=== PATIENT | female | born 1950 | race Caucasian/White ===

== ENCOUNTER → 2024-10-11 14:03 | Outpatient (CLI) | payer OTHER, SELFPAY ==
[2024-10-11 14:43] LABS: Add Manual Diff / Slide Review NO; Basophils Absolute Auto 100 /uL (0-100); Eosinophils Absolute Auto 300 /uL (0-450); Eosinophils Percent Auto 4.2 % (2-4); Hematocrit 39.6 % (36-46); Hemoglobin 13.3 g/dL (12.0-16.0); Lymphocytes Absolute Auto 2200 /uL (1100-4500); Lymphocytes Percent Auto 35.9 % (25-40); Mean Corpuscular HGB Conc 33.6 % (30-36); Mean Corpuscular Hemoglobin 31.8 PG (26-34); Mean Corpuscular Volume 94.5 fL (80-100); Monocytes Absolute Auto 500 /uL (0-900); Monocytes Percent Auto 8.7 % (3-14); Neutrophils Absolute Auto 3100 /uL (1500-7000); Neutrophils Percent Auto 50.2 % (50-75); Platelet Count 324 X10^3/uL (150-400); Red Blood Cell Count 4.19 X10^6/uL (4.0-5.2); White Blood Cell Count 6.2 X10^3/uL (4.5-11.0)
[2024-10-11 15:04] LABS: HEMOLYSIS < 15 (0-50); Iron 140 ug/dL (37-170)
[2024-10-11 15:07] LABS: Alanine Aminotransferase 26 IU/L (<35); Albumin 4.6 g/dL (3.5-5.0); Albumin Globulin Ratio 1.5 (1.0-2.8); Alkaline Phosphatase 73 U/L (38-126); Aspartate Aminotransferase 37 IU/L (14-36); BUN Creatinine Ratio 18.2 (6-22); Bilirubin Total 0.7 mg/dL (0.2-1.3); Blood Urea Nitrogen 12 mg/dL (7-17); Calcium 9.5 mg/dL (8.4-10.2); Carbon Dioxide 24 mmol/L (22-32); Chloride 104 mmol/L (98-107); Cholesterol 231 mg/dL (140-199); Estimated Glomerular Filt Rate > 60 mL/min (>60); Glucose 107 mg/dL (80-110); HDL Cholesterol 84 mg/dL (40-60); HEMOLYSIS < 15 (0-50); LDL Cholesterol Calculated 130 mg/dL (<100); Potassium 4.3 mmol/L (3.4-5.1); Sodium 139 mmol/L (137-145); Total Protein 7.6 g/dL (6.3-8.2); Triglycerides 85 mg/dL (35-150)
[2024-10-11 15:15] LABS: Percent Iron Saturation 52 % (15-50); Total Iron Binding Capacity 271 ug/dL (265-497); Transferrin 239 mg/dL (206-381)
[2024-10-11 15:40] LABS: Ferritin 125 ng/mL (11-264)
== END ==
LOC: LAB 14:05
PROVIDERS: PCP Family Medicine; Referring Provider Family Medicine; Visit Provider Family Medicine
DX: E61.1 Iron deficiency (principal); E78.5 Hyperlipidemia, unspecified; I10 Essential (primary) hypertension
CPT/HCPCS: 36415; 80053; 80061; 82728; 83540; 83550; 85025

== ENCOUNTER → 2024-10-12 14:54 | Outpatient (CLI) | payer OTHER, SELFPAY ==
--- NOTE | 2024-10-12 14:55 | DI.RAD.S_ITS ---
PROCEDURE: XR DEXA AXIAL SKELETON INDICATIONS: Osteoporosis COMPARISON: None. FINDINGS: Lumbar Spine: Bone mineral density 1.075 g/cm2, T score 0.3. Left Femoral Neck: Bone mineral density 0.752 g/cm2, T score -0.9. Left Hip: Bone mineral density 0.746 g/cm2, T score -1.6. Fracture Risk Calculation (when applicable): 10-year fracture risk of a major osteoporotic fracture 16 percent and of a hip fracture 6.8 percent. (T score greater or equal to -1.0 to: NORMAL) (T score from -1.1 to -2.4: OSTEOPENIA) (T score less than or equal to -2.5: OSTEOPOROSIS) IMPRESSION: Osteopenia--- recommend repeat DEXA in 2-3 years for reassessment. Follow-up guidelines as follows: Osteoporosis: Consider a repeat DEXA and Vertebral Fracture Assessment (VFA) exam in 2 years or sooner if medically necessary, to reassess this patient's status. Osteopenia: Consider a repeat DEXA in 2-3 years to reassess this patient's status, or if there is a new clinical indication. Normal: Consider a repeat DEXA in 5 years or sooner, or if there is a new clinical indication. All treatment decisions require clinical judgment and consideration of individual patient factors, including patient preferences, comorbidities, previous drug use, risk factors not captured in the FRAX model (e.g., frailty, falls, vitamin D deficiency, increased bone turnover, interval significant decline in bone density ) and possible under- or over-estimation of fracture risk by FRAX. In addition, the NOF Guide recommends that FDA-approved medical therapies be considered in postmenopausal women and men age >= 50 years with a: * Hip or vertebral (clinical or morphometric) fracture * T-score of <=-2.5 at the spine or hip * Ten-year fracture probability by FRAX of >= 3% for hip fracture or >=20% for major osteoporotic fracture. Dictated by: Erick Cotton M.D. on 10/12/2024 at 19:22 Approved by: Erick Cotton M.D. on 10/12/2024 at 19:25
--- NOTE | 2024-10-12 14:55 | DI.MG.S_ITS ---
MM screening mammo BI: 10/12/2024. BI-RADS: 2 CLINICAL: 74-year old female for bilateral screening mammogram. Tyrer-Cuzick lifetime risk of 1.5%. No personal or first-degree family history of breast cancer. PRIOR EXAMS No prior examinations available. MAMMOGRAPHY TECHNIQUE: 2D and 3D (tomosynthesis) digital mammographic views obtained, with additional images as needed for full coverage. Current study was also evaluated with a Computer Aided Detection (CAD) system. DENSITY B. There are scattered areas of fibroglandular density. MAMMOGRAPHY FINDINGS Right: Benign-appearing calcification noted on the right. There are no suspicious masses, calcifications, or other findings in the breast. Left: No suspicious mass, asymmetry, microcalcification, or other abnormality seen. IMPRESSION: Right * No evidence of malignancy with benign findings. Left * No evidence of malignancy. RECOMMENDATIONS Bilateral * Annual screening mammography. OVERALL ASSESSMENT CATEGORY BI-RADS-2: Benign. The [employer] recommends annual screening mammography beginning at age 40 for women with average risk of breast cancer. ELECTRONICALLY SIGNED: Martin Carlos M.D. on 10/30/2024 at 09:57:54 AM PT Interpreting Station ID: [id number]
== END ==
PROVIDERS: PCP Family Medicine; Referring Provider Family Medicine; Visit Provider Family Medicine
DX: Z12.31 Encounter for screening mammogram for malignant neoplasm of breast (principal); M81.0 Age-related osteoporosis without current pathological fracture
CPT/HCPCS: 77063; 77067; 77080

== ENCOUNTER → 2024-11-08 09:51 | Outpatient (CLI) | payer OTHER, SELFPAY | LOC: RESP 09:51 | PROVIDERS: PCP Family Medicine; Referring Provider Family Medicine; Visit Provider Family Medicine | DX: J45.20 Mild intermittent asthma, uncomplicated (principal); R05.3 Chronic cough | CPT/HCPCS: 94060; 94726; 94729 ==

== ENCOUNTER 2025-04-26 17:40 | Emergency (ER) | payer OTHER, SELFPAY ==
[2025-04-26 18:07] VITALS: BP 154/75; PULSE 72; RESP 14; TEMP 36.1; O2SAT 97; BMI 23.8
--- NOTE | 2025-04-26 18:10 | DI.US.S_ITS ---
PROCEDURE: US PERIPH VENOUS LOW EXTREM RT INDICATIONS: knee and leg pain, sent from [facility] for US TECHNIQUE: Real-time imaging, as well as color and pulse Doppler interrogation, were performed of the lower extremity deep veins from the inguinal ligament to the popliteal fossa, with documentation of the visualized calf veins. COMPARISON: [facility], CR, XR KNEE RT 3V, 04/26/2025, 18:15. FINDINGS: The common femoral, femoral, popliteal, and the visualized calf veins are normally compressible, and free of intraluminal thrombus. Color and pulse Doppler demonstrate normal phasic intraluminal flow. There is normal augmentation response to distal compression maneuver. IMPRESSION: No findings of lower extremity deep venous thrombosis. Dictated by: Jonatan Kunz M.D. on 04/26/2025 at 18:11 Approved by: Jonatan Kunz M.D. on 04/26/2025 at 18:11
--- NOTE | 2025-04-26 18:10 | DI.RAD.S_ITS ---
PROCEDURE: XR KNEE RT 3V INDICATIONS: knee and leg pain,sent from [facility] for US TECHNIQUE: 2 views of the knee were acquired. COMPARISON: None. FINDINGS: Unicompartmental medial knee arthroplasty. No hardware failure. Marginal osteophytes in the patellofemoral and lateral tibiofemoral compartments. No fracture or dislocation. No effusion. IMPRESSION: No acute abnormality. Osteoarthritis. Dictated by: Austin Chin M.D. on 04/26/2025 at 18:45 Approved by: Austin Chin M.D. on 04/26/2025 at 18:46
[2025-04-26] MEDS: ACETAMINOPHEN 325 MG TABLET 650 MG PO (22:29)
--- NOTE | 2025-04-26 22:37 | PC.NURSE ---
Pt ambulatory to exam room with cane, which she states is not normal. Pt states pain started on Friday around posterior right knee, began radiating distally initially, then proximally. Pt denies injury or trauma. Pt denies swelling, redness ,or heat of extremity. Pt states noted some tingling in foot. Pt initially requested to sit in chair but then changed mind stating it is more uncomfortable to sit up with leg bent. Placed in ED stretcher and states more comfortable at this time.
--- NOTE | 2025-04-26 23:23 | ED.EXTPRO ---
HPI - Extremity Problem General Chief complaint: Extremity Problem,Nontraumatic Stated complaint: rt leg pain Time Seen by Provider: 04/26/25 19:04 Source: patient, RN notes reviewed and old records reviewed Mode of arrival: Ambulatory Limitations: no limitations History of Present Illness HPI Narrative: 75-year-old female with complaint of right lower extremity pain since Friday. Patient notes that she did have a shingles shot on Friday. She notes she developed pain she states it radiates down the whole leg she noticed it 1st behind the knee. She states it feels like it is in the soft tissue but does come up towards her hip as well as down the calf. She has not noticed any swelling, she has not noticed any warmth or redness. She states she has noticed that it wants to give out intermittently when she ambulates particularly when she steps or pivots on it. She has had a prior knee replacement. She states it does not feel like the knee joint itself is painful. She has not had any new numbness or tingling. She has been taking acetaminophen for pain which she has found helpful. Related Data Home Medications ?Medication ?Instructions ?Recorded ?Confirmed amlodipine 5 mg tablet 5 mg PO DAILY 07/13/24 04/26/25 epinephrine 0.3 mg/0.3 mL ml IM 07/13/24 04/26/25 injection, auto-injector fluvoxamine 50 mg tablet mg PO 07/13/24 04/26/25 lamotrigine 100 mg tablet 100 mg PO 3XD 07/13/24 04/26/25 gabapentin 300 mg capsule 600 mg PO QDAY 09/21/24 04/26/25 Previous Rx's ?Medication ?Instructions ?Recorded fluticasone propionate 45 2 puff inhalation Q12H #12 grams 10/25/24 mcg-salmeterol 21 mcg/actuation HFA inhaler (Advair HFA) trazodone 50 mg tablet 50 mg PO BEDTIME #90 tabs 10/25/24 fluticasone propionate 44 1 puff inhalation BID #10.6 grams 01/24/25 mcg/actuation HFA aerosol inhaler pravastatin 40 mg tablet 80 mg (2 x 40 mg) PO DAILY #180 01/24/25 tabs omeprazole 40 mg capsule,delayed 40 mg PO DAILY #90 caps 04/14/25 release Allergies Allergy/AdvReac Type Severity Reaction Status Date / Time ibuprofen Allergy Intermediate Hives Verified 04/26/25 18:07 iodine Allergy Intermediate swelling Verified 04/26/25 18:07 shellfish derived Allergy Intermediate Anaphylaxis Verified 04/26/25 18:07 juniper Allergy Severe syncope Uncoded 04/26/25 18:07 pigeon dander Allergy Severe Cough Uncoded 04/26/25 18:07 opiates AdvReac Intermediate hallucinati Uncoded 04/26/25 18:07 ons Review of Systems Review of Systems ROS Unobtainable: All systems reviewed & are unremarkable except as noted in HPI and below Patient History Medical History Lichen planus Osteoarthritis Asthma Seizures (~1993) Osteoporosis Fibromyalgia (~1995) Measles Chicken pox Hearing loss (~07/1988) GERD (gastroesophageal reflux disease) Surgical History Anesthesia History of appendectomy (~06/1999) History of hip replacement (~05/2022) S/P left rotator cuff repair History of knee surgery (~09/2010) History of ear surgery (~07/1988) History of cataract removal with insertion of prosthetic lens Family History Father History of heart disease Mother Mental health problem Grandmother Pleurisy Grandfather History of heart disease Social History Smoking Status: Unknown if ever smoked Smoking Status: Unknown if ever smoked Exam Narrative Exam Narrative: GENERAL: Alert and oriented x three, female in mild distress HEENT: Head normocephalic, atraumatic, EOMI, pupils reactive, face symmetric, moist mucous membranes NECK: Supple, full range of motion CARDIOVASCULAR: Regular rate and rhythm without murmurs, rubs or gallops. RESPIRATORY: Breath sounds equal bilaterally, no wheezes rales or rhonchi. ABDOMEN: Soft, nontender. Normoactive bowel sounds all 4 quadrants. No guarding or rebound, rigidity, no mass : No CVA tenderness EXTREMITIES: Normal range of motion, no clubbing or edema. Neurovascularly intact. No bony tenderness of the right lower extremity including hip, femur, knee, tib-fib, ankle toes or foot. Patient has 2+ pulses in the right foot. Leg is warm, pink without any cyanosis. Patient has full range of motion. No weakness. Joint laxity testing is normal. NEUROLOGICAL: Cranial nerves II through XII grossly intact. Moving all extremities SKIN: Warm, dry, no petechiae, no rashes or lesions. Initial Vital Signs Initial Vital Signs: Vital Signs Temperature 97.0 F L 04/26/25 18:07 Pulse Rate 72 04/26/25 18:07 Respiratory Rate 14 04/26/25 18:07 Blood Pressure 154/75 H 04/26/25 18:07 Pulse Oximetry 97 04/26/25 18:07 Oxygen Delivery Method Room Air 04/26/25 18:07 Course Orders Ordered: ED Orders 04/26/25 18:10 perip venous low extrem rt Stat XR knee RT 3V Stat Discontinued Medications Acetaminophen (Acetaminophen 325 Mg Tablet) 650 mg PO NOW ONE Stop: 04/26/25 22:27 Last Admin: 04/26/25 22:29 Dose: 650 mg Documented By: YANDY Vital Signs Vital signs: Vital Signs - 8 hr 04/27/25 00:39 Pulse Rate 71 Respiratory Rate 18 Blood Pressure 143/87 H Pulse Oximetry 96 Oxygen Delivery Method Room Air MDM - Extremity (Nontraumatic) MDM Narrative Medical decision making narrative: Right lower extremity ultrasound is negative for DVT. Right knee x-ray shows no acute abnormality does have osteoarthritis noted. 75-year-old female who notes increased pain of her right lower extremity radiating down her leg. We discussed possibility of sciatica but states she has had that in the past and this does feel different. She notes sometimes when she pivots in his heart position it feels like it wants to give out. She denies any swelling or other changes DVT ultrasound is negative, right knee x-ray does not show any acute change. Patient is to follow up with primary care if persisting she has been using brace and a cane which she finds helpful. Discussed return precautions. Discharge Plan Departure Patient Disposition: Home Clinical Impression: Leg pain, right Instructions: DI for Leg Pain Activity Restrictions/Additional Instructions: Follow up with your physician for rechecked if your symptoms are not improving. You can ambulate as tolerated. You can take acetaminophen up to a 1000 mg every 6 hours as needed for pain. Please return for any warmth, erythema or redness, new swelling of the leg, any fevers, any new loss of sensation, pallor or cyanosis or pale or blue discoloration of the leg. Prescriptions: No Action pravastatin 40 mg tablet 80 mg PO DAILY Qty: 180 3RF fluticasone propionate 44 mcg/actuation HFA aerosol inhaler 1 puff inhalation BID Qty: 10.6 1RF Rx Instructions: administer with spacer epinephrine 0.3 mg/0.3 mL auto-injector IM amlodipine 5 mg tablet 5 mg PO DAILY fluvoxamine 50 mg tablet PO lamotrigine 100 mg tablet 100 mg PO 3XD gabapentin 300 mg capsule 600 mg PO QDAY fluticasone propion-salmeterol [Advair HFA] 45-21 mcg/actuation HFA aerosol inhaler 2 puff inhalation Q12H Qty: 12 2RF trazodone 50 mg tablet 50 mg PO BEDTIME Qty: 90 2RF omeprazole 40 mg capsule,delayed release(DR/EC) 40 mg PO DAILY Qty: 90 1RF Referrals: Elise Fraser MD [Primary Care Provider, Family Practice] Stand Alone Forms: Patient Portal/API
[2025-04-27 00:39] VITALS: BP 143/87; PULSE 71; RESP 18; O2SAT 96
== END 2025-04-27 00:41 | disposition home or self-care (01) ==
PROVIDERS: Emergency Provider Emergency Medicine; PCP Family Medicine
DX: M79.604 Pain in right leg (principal)
CPT/HCPCS: 73562; 93971; 99283

== ENCOUNTER → 2025-05-10 11:45 | Outpatient (CLI) | payer OTHER, SELFPAY ==
--- NOTE | 2025-05-10 11:46 | DI.US.S_ITS ---
PROCEDURE: US EXTREMITY NONVASC LOWER RT INDICATIONS: Soft tissue TECHNIQUE: Real-time scanning was performed of the right knee , with image documentation. COMPARISON: [facility], CR, XR KNEE RT 3V, 04/26/2025, 18:15. FINDINGS AND IMPRESSION: At the right lateral joint, there is a complicated cyst measuring 1 x 1.2 cm. This could represent a ganglion cyst. No popliteal cyst identified. Popliteal vein appears patent. Consider cross-sectional imaging if there is further clinical concern. Dictated by: Fernando Bobby M.D. on 05/10/2025 at 13:19 Approved by: Fernando Bobby M.D. on 05/10/2025 at 13:21
== END ==
LOC: US 11:46
PROVIDERS: PCP Family Medicine; Referring Provider Family Medicine; Visit Provider Family Medicine
DX: M71.21 Synovial cyst of popliteal space [Baker], right knee (principal); M25.861 Other specified joint disorders, right knee; M25.561 Pain in right knee
CPT/HCPCS: 76882

== ENCOUNTER → 2025-07-13 15:50 | Outpatient (CLI) | payer OTHER, SELFPAY ==
--- NOTE | 2025-07-13 15:52 | DI.US.S_ITS ---
PROCEDURE: US SOFT TISSUE HEAD AND NECK INDICATIONS: LEFT POSTERIOR LUMP CHRONIC TECHNIQUE: Real-time scanning was performed of the neck region of interest, with image documentation. COMPARISON: None. FINDINGS: Grayscale and color Doppler images of the left posterior neck were acquired at the patient directed area of palpable concern. No suspicious mass, adenopathy, or abnormal fluid collection. A very small normal lymph node is seen in the vicinity. This is likely incidental in etiology. IMPRESSION: No suspicious mass or adenopathy identified in the palpable area concern in the left neck. Recommend continued clinical surveillance and follow-up imaging as needed. Dictated by: Arslan Patel M.D. on 07/15/2025 at 12:03 Approved by: Arslan Patel M.D. on 07/15/2025 at 12:04
== END ==
PROVIDERS: PCP Family Medicine; Referring Provider Family Medicine; Visit Provider Family Medicine
DX: R22.1 Localized swelling, mass and lump, neck (principal)
CPT/HCPCS: 76536